=== PATIENT | female | born 1985 | race Caucasian/White ===

== ENCOUNTER 2019-04-14 23:00 | Emergency (ER) | payer OTHER ==
[~2019-04-14] VITALS: Ht 167.6 cm; Wt 109.8 kg
[2019-04-14] MEDS ORDERED: NEURONTIN300 MG PO (23:10)
[2019-04-14] MEDS ORDERED: CYMBALTA20 MG (23:11)
[2019-04-14] MEDS ORDERED: TRILEPTAL150 MG (23:11)
[2019-04-14] MEDS ORDERED: VYVANSE10 MG (23:11)
[2019-04-14] MEDS ORDERED: AMITRIPTYLINE H50 M2 (23:12)
[2019-04-14] MEDS ORDERED: QUETIAPINE FUM100 MG (23:12)
[2019-04-15] MEDS ORDERED: NAPROSYN500 MG PO (00:21)
[2019-04-15 00:44] VITALS: BP 128/73
== END 2019-04-15 00:46 | disposition home or self-care (01) ==
LOC: M.ERS 23:00
DX: S60.221A Contusion of right hand, initial encounter (principal); F31.9 Bipolar disorder, unspecified; F41.9 Anxiety disorder, unspecified; W18.39XA Other fall on same level, initial encounter; Y92.89 Other specified places as the place of occurrence of the external cause; Y93.89 Activity, other specified; Y99.8 Other external cause status